=== PATIENT | female | born 1985 | race Caucasian/White ===

== ENCOUNTER 2016-11-02 09:32 | Observation (INO) | payer OTHER ==
[2016-11-02] MEDS ORDERED: BABY ASPIRIN 81 MG CHEW PO ONE (09:50)
[2016-11-02] MEDS ORDERED: Sodium Chloride 0.9% 1000 ML 1,000 ML IV SCH (10:00)
[2016-11-02] MEDS ORDERED: Zofran 4 MG/2 ML VIAL ONE (10:02)
[2016-11-02] MEDS ORDERED: BABY ASPIRIN 81 MG CHEW ONE (10:03)
[2016-11-02] MEDS ORDERED: Sodium Chloride 0.9% 1000 ML 1,000 ML ONE (10:03)
[2016-11-02] MEDS ORDERED: Zofran 4 MG/2 ML VIAL IV ONE ×2 (10:06→12:53)
[2016-11-02 10:10] LABS: BASOPHIL % 0.4 % (0.0-0.4); Eosinophil % 3.2 % (0.00-5.0); Granulocytes % 44.9 % (36.0-66.0); Mean Cell Volume 87.4 fl (78-100); Mean Corpuscular Hemoglobin 30.2 pg (26-32); Mean Platelet Volume 10.3 fl (6-9.5); Monocytes % 6.5 % (0.0-12.0); Platelet Count 213 K/mm3 (150-450); Red Blood Count 4.61 M/mm3 (4.1-5.4); White Blood Count 6.9 K/mm3 (4.0-10.5)
[2016-11-02] MEDS ORDERED: Sodium Chloride 0.9% 1000 ML 1,000 ML IV STA (10:13)
[2016-11-02] MEDS ORDERED: Nitrostat 0.4 MG (ED) SL ONE ×2 (10:13→10:25)
--- NOTE | 2016-11-02 10:13 | ERPHSYRPT ---
- History of Present Illness Time Seen by Provider: 11/02/16 09:50 Historian: patient Exam Limitations: clinical condition Patient Subjective Stated Complaint: PT REPORTS CHEST PAIN RADIATING TO BACK BEGINNING MONDAY-WORSENS WITH DEEP BREATHING OR COUGHING-PT REPORTS INTERMITTANT NONPRODUCTIVE COUGH-UNSURE OF FEVER Triage Nursing Assessment: PT PINK WARM ET [id number] EASY ET NONLABORED- BREATH SOUNDS EQUAL ET CLEAR BILATERALLY-NO COUGH NOTED DURING TRIAGE Physician History: PATIENT WITH HISTORY OF HYPERTENSION, MULTIPLE TRANSIENT ISCHEMIC ATTACKS, COMPLAINS OF ELEVATED BLOOD PRESSURE ASSOCIATED WITH ANTERIOR CHEST PAIN PRESSURE TIGHTNESS FOR 3 DAYS. STATES PAIN RADIATES TO BACK, ASSOCIATED WITH DYSPNEA, DENIES COUGH OR FEVER. HAS BEEN NONCOMPLIANT WITH BLOOD PRESSURE MEDICATION FOR MORE THAN 6 MONTHS. HAS EMESIS, NAUSEA WITH UPPER ABDOMINAL PAINS UPON ARRIVAL. Timing/Duration: day(s) Activities at Onset: none Quality: pressure, tightness Location: substernal Chest Pain Radiation: back Severity of Pain-Max: moderate Severity of Pain-Current: moderate Modifying Factors: Improves With: breathing Associated Symptoms: nausea, vomiting Prior Chest Pain/Cardiac Workup: no prior chest pain Nitro Today/Relief: 0.4 mg x 2, provided by ED, mild relief Aspirin Treatment Today: no aspirin today (DUE TO EMESIS) Allergies/Adverse Reactions: codeine Allergy (Severe, Verified 11/02/16 09:42) Hives Home Medications: No Home Meds 1 [facility] UD 11/02/16 [History] Hx Tetanus, Diphtheria Vaccination/Date Given: No Hx Influenza Vaccination/Date Given: No Hx Pneumococcal Vaccination/Date Given: No Immunizations Up to Date: Yes - Review of Systems Constitutional: No Fever, No Chills Eyes: No Symptoms Ears, Nose, & Throat: No Symptoms Respiratory: No Cough, No Dyspnea Cardiac: Chest Pain, No Edema, No Syncope Abdominal/Gastrointestinal: Abdominal Pain, Nausea, Vomiting, No Diarrhea Genitourinary Symptoms: No Symptoms, No Dysuria Musculoskeletal: No Symptoms, No Back Pain, No Neck Pain Skin: No Symptoms, No Rash Neurological: No Symptoms, No Dizziness, No Focal Weakness, No Sensory Changes Psychological: No Symptoms Endocrine: No Symptoms All Other Systems: Reviewed and Negative - Past Medical History Pertinent Past Medical History: Yes Neurological History: TIA, Other ENT History: No Pertinent History Cardiac History: Hypertension Respiratory History: No Pertinent History Endocrine Medical History: No Pertinent History Musculoskeletal History: No Pertinent History GI Medical History: No Pertinent History History: No Pertinent History Psycho-Social History: No Pertinent History Female Reproductive Disorders: No Pertinent History Other Medical History: GALLSTONES - Past Surgical History Past Surgical History: Yes Neuro Surgical History: No Pertinent History Cardiac: No Pertinent History Respiratory: No Pertinent History Gastrointestinal: Appendectomy, Cholecystectomy Genitourinary: No Pertinent History Musculoskeletal: No Pertinent History Female Surgical History: Section, Tubal Ligation Other Surgical History: After first , patient described that she had 27 "mini" strokes and preeclampsia. TONSILS ET ADNOIDS - Social History Smoking Status: Never smoker Exposure to second hand smoke: Yes Drug Use: none Patient Lives Alone: No Significant Family History: no pertinent family hx - Female History Hx Last Menstrual Period: OCTOBER 08 2016 Hx Now: No - Nursing Vital Signs Nursing Vital Signs: Initial Vital Signs Temperature 98.0 F Temperature Source Oral Pulse Rate [] 90 Pulse Rate 81 Respiratory Rate 18 Blood Pressure [] 111/60 Pain Intensity 3 - Physical Exam General Appearance: no apparent distress, alert Eye Exam: PERRL/EOMI, eyes nml inspection Ears, Nose, Throat Exam: normal ENT inspection, moist mucous membranes Neck Exam: normal inspection, non-tender, supple, full range of motion Respiratory Exam: normal breath sounds, lungs clear, No respiratory distress Cardiovascular Exam: regular rate/rhythm, normal heart sounds Gastrointestinal/Abdomen Exam: soft, normal bowel sounds, tenderness ( EPIGASTRIC ), No mass Back Exam: normal inspection, No CVA tenderness, No vertebral tenderness Extremity Exam: normal inspection, normal range of motion Neurologic Exam: alert, oriented x 3, cooperative, normal mood/affect, sensation nml, No motor deficits Skin Exam: normal color, warm, dry SpO2 Interpretation: normal SpO2: 98 Oxygen Delivery: Room Air - Course EKG Interpreted by Me: RATE, Sinus Rhythm, NORMAL AXIS, Other (INFERIOR T-WAVE CHANGES LEADS 111,AVF AND LEAD V3) - Radiology Exams Chest X-ray Interpretation: Discussed w/ radiologist (SLIGHTLY, HYPOINFLATED CHEST REVEALING NO INFILTRATES, HEART FAILURE) - CT Exams Chest CT Interpretation: Discussed w/radiologist (NO FINDINGS OF ACUTE PULMONARY EMBOLISM) Ordered Tests: Active Orders 24 hr Category Date Time Status Bedrest ROUTINE Activity 11/02/16 12:25 Active Bedrest with BRP/BSC ROUTINE Activity 11/02/16 12:25 Active Admission/Status Order ROUTINE Care 11/02/16 12:25 Active [employer] STAT Care 11/02/16 09:50 Active Code Status Order ROUTINE Care 11/02/16 12:25 Active EKG-ER Only STAT Care 11/02/16 09:50 Active IV Care Q6H Care 11/02/16 12:25 Active Implement Chest Pain Pathway ROUTINE Care 11/02/16 12:25 Active Oxygen-ED Only NASAL CANNULA 2 lpm Care 11/02/16 09:50 Active Siddharth Portillo, Apply ROUTINE Care 11/02/16 12:25 Active Telemetry ROUTINE Care 11/02/16 12:25 Active Vital Signs Q4H Care 11/02/16 12:25 Active Weight,Daily 0600 Care 11/02/16 12:25 Active Regular Diet Diet 11/02/16 Dinner Active CHEST 1 VIEW (PORTABLE) Stat Exams 11/02/16 09:53 Completed CHEST WITH CONTRAST [CT] Stat Exams 11/02/16 10:48 Completed BLOOD CULTURE Stat Lab 11/02/16 10:05 Received CBC W DIFF Stat Lab 11/02/16 09:50 Completed CMP Stat Lab 11/02/16 09:50 Completed D-DIMER QUANTITATION Stat Lab 11/02/16 09:50 Completed LIPID PROFILE AM.LAB Lab 11/03/16 04:00 Ordered MAGNESIUM Stat Lab 11/02/16 09:50 Completed PROTIME WITH INR Stat Lab 11/02/16 09:50 Completed TROPONIN Q3H Lab 11/02/16 09:50 Completed TROPONIN Q3H Lab 11/02/16 13:00 Ordered TROPONIN Q3H Lab 11/02/16 16:00 Ordered TROPONIN Q3H Lab 11/02/16 19:00 Ordered TROPONIN Q3H Lab 11/02/16 22:00 Ordered EKG Q8HX2,QAMX3,PRN RT 11/02/16 12:25 Active Pulse Oximetry Q4H RT 11/02/16 12:25 Active Transfer Order Routine Transfer 11/02/16 12:24 Ordered Medication Summary Generic Name Dose Route Start Last Admin Trade Name Freq PRN Reason Stop Dose Admin Acetaminophen 650 mg 11/02/16 12:25 Tylenol 325 Mg PO 12/02/16 12:24 Q4H PRN PRN PAIN AND/OR FEVER Al Hydrox/Mg Hydrox/Simethicone 30 ml 07/12/17 12:25 Maalox Es 30 Ml Unit Dose PO 12/02/16 12:24 Q4H PRN PRN INDIGESTION Aspirin 325 mg 11/03/16 10:00 Ecotrin 325 Mg PO 12/03/16 09:59 DAILY [facility] Famotidine 20 mg 11/02/16 22:00 Pepcid 20 Mg Vial IV 12/02/16 21:59 Q12HT [facility] Sodium Chloride 1,000 mls @ 100 mls/hr 11/02/16 10:00 11/02/16 10:13 Sodium Chloride 0.9% 1000 Ml IV 12/02/16 09:59 500 mls/hr .Q10H [facility] Infusion Sodium Chloride 500 mls @ 75 mls/hr 11/02/16 12:30 Sodium Chloride 0.9% 500 Ml IV 12/02/16 12:29 .Q6H40M [facility] Lisinopril 10 mg 11/03/16 10:00 Zestril 10 Mg PO 12/03/16 09:59 DAILY [facility] Magnesium Hydroxide 30 - 60 ml 11/02/16 12:25 Milk Of Magnesia 30 Ml PO 12/02/16 12:24 QDP PRN CONSTIPATION Morphine Sulfate 2 mg 11/02/16 12:25 Morphine Sulfate 2 Mg Inj IV 11/07/16 12:24 .Q15MIN PRN PRN CHEST PAIN Nitroglycerin 0.4 mg 11/02/16 12:25 Nitrostat 0.4 Mg Tablet SL 12/02/16 12:24 .Q5MIN PRN CHEST PAIN Nitroglycerin 1 gm 11/02/16 14:00 Nitro-Bid 2% Ud Packets TOP 12/02/16 13:59 Q8HT [facility] Ondansetron HCl 4 mg 11/02/16 12:25 Zofran 4 Mg/2 Ml Vial IV 12/02/16 12:24 Q4H PRN PRN NAUSEA/VOMITING Senna/Docusate Sodium 2 udtab 11/02/16 12:25 Senokot-S Tablet PO 12/02/16 12:24 BID PRN PRN CONSTIPATION Discontinued Medications Generic Name Dose Route Start Last Admin Trade Name Freq PRN Reason Stop Dose Admin Aspirin 324 mg 11/02/16 09:50 11/02/16 10:11 Baby Aspirin 81 Mg Chew PO 11/02/16 09:51 Not Given STAT ONE Aspirin Confirm 11/02/16 10:03 Baby Aspirin 81 Mg Chew Administered 11/02/16 10:04 Dose 324 mg .ROUTE .STK-MED ONE Sodium Chloride 1,000 mls @ 500 mls/hr 11/02/16 10:13 11/02/16 10:23 Sodium Chloride 0.9% 1000 Ml IV 11/02/16 12:12 500 mls/hr .Q2H STA Administration Nitroglycerin 0.4 mg 11/02/16 10:13 11/02/16 10:18 Nitrostat 0.4 Mg (Ed) SL 11/02/16 10:14 0.4 mg STAT ONE Administration Nitroglycerin Confirm 11/02/16 10:25 Nitrostat 0.4 Mg (Ed) Administered 11/02/16 10:26 Dose 0.4 mg SL .STK-MED ONE Nitroglycerin 1 gm 11/02/16 11:02 11/02/16 11:24 Nitro-Bid 2% Ud Packets TOP 11/02/16 11:03 1 gm STAT ONE Administration Nitroglycerin Confirm 11/02/16 11:21 Nitro-Bid 2% Ud Packets Administered 11/02/16 11:22 Dose 1 gm .ROUTE .STK-MED ONE Ondansetron HCl Confirm 11/02/16 10:02 Zofran 4 Mg/2 Ml Vial Administered 11/02/16 10:03 Dose 4 mg .ROUTE .STK-MED ONE Ondansetron HCl 4 mg 11/02/16 10:06 11/02/16 10:07 Zofran 4 Mg/2 Ml Vial IV 11/02/16 10:07 4 mg STAT ONE Administration Pantoprazole Sodium 40 mg 11/02/16 10:14 11/02/16 10:23 Protonix 40 Mg Iv IV 11/02/16 10:15 40 mg STAT ONE Administration Pantoprazole Sodium Confirm 11/02/16 10:25 Protonix 40 Mg Iv Administered 11/02/16 10:26 Dose 40 mg IV .STK-MED ONE Lab/Rad Data: Laboratory Result Diagrams 11/02/16 09:50 11/02/16 09:50 Laboratory Results 11/02/16 11/02/16 11/02/16 Range/Units 09:50 09:50 09:50 WBC (4.0-10.5) K/mm3 RBC (4.1-5.4) M/mm3 Hgb (12.0-16.0) gm/dl Hct (35-47) % MCV (78-100) fl MCH (26-32) pg MCHC (32-36) g/dl RDW (11.5-14.0) % Plt Count (150-450) K/mm3 MPV (6-9.5) fl Gran % (36.0-66.0) % Lymphocytes % (24.0-44.0) % Monocytes % (0.0-12.0) % Eosinophils % (0.00-5.0) % Basophils % (0.0-0.4) % Basophils # (0-0.4) INR 0.94 (0.8-3.0) D-Dimer 658 H* (0-500) ng/mL Sodium 139 (136-145) mEq/L Potassium 3.8 (3.5-5.1) mEq/L Chloride 104 (98-107) mEq/L Carbon Dioxide 22.0 (21-32) mEq/L Anion Gap 16.5 H (5-15) MEQ/L BUN 6 L (9-20) mg/dL Creatinine 0.78 (0.55-1.30) mg/dl Estimated GFR > 60 ML/MIN Glucose 107 (70-110) MG/DL Calcium 9.3 (8.5-10.1) mg/dL Magnesium 2.0 (1.8-2.4) mg/dL Total Bilirubin 0.40 (0.2-1.0) mg/dL AST 27 (15-37) U/L ALT 29 (12-78) U/L Alkaline Phosphatase 61 (46-116) U/L Troponin I < 0.017 (0.000-0.056) ng/ml Serum Total Protein 7.9 (6.4-8.2) gm/dL Albumin 3.8 (3.4-5.0) g/dL 11/02/16 Range/Units 09:50 WBC 6.9 (4.0-10.5) K/mm3 RBC 4.61 (4.1-5.4) M/mm3 Hgb 13.9 (12.0-16.0) gm/dl Hct 40.3 (35-47) % MCV 87.4 (78-100) fl MCH 30.2 (26-32) pg MCHC 34.5 (32-36) g/dl RDW 13.0 (11.5-14.0) % Plt Count 213 (150-450) K/mm3 MPV 10.3 H (6-9.5) fl Gran % 44.9 (36.0-66.0) % Lymphocytes % 45.0 H (24.0-44.0) % Monocytes % 6.5 (0.0-12.0) % Eosinophils % 3.2 (0.00-5.0) % Basophils % 0.4 (0.0-0.4) % Basophils # 0.03 (0-0.4) INR (0.8-3.0) D-Dimer (0-500) ng/mL Sodium (136-145) mEq/L Potassium (3.5-5.1) mEq/L Chloride (98-107) mEq/L Carbon Dioxide (21-32) mEq/L Anion Gap (5-15) MEQ/L BUN (9-20) mg/dL Creatinine (0.55-1.30) mg/dl Estimated GFR ML/MIN Glucose (70-110) MG/DL Calcium (8.5-10.1) mg/dL Magnesium (1.8-2.4) mg/dL Total Bilirubin (0.2-1.0) mg/dL AST (15-37) U/L ALT (12-78) U/L Alkaline Phosphatase (46-116) U/L Troponin I (0.000-0.056) ng/ml Serum Total Protein (6.4-8.2) gm/dL Albumin (3.4-5.0) g/dL - Progress Progress Note: 11/02/16 10:26 PATIENT GIVEN IV NORMAL SALINE 500ML/HR, ZOFRAN 4MG IV, UNABLE TO TOLERATE ASPIRIN DUE TO EMESIS, FOLLOWED BY NITROGLYCERIN 0.4GM SL Discussed with Dr.: Bullock (DISCUSSED WITH DR BULLOCK AT 1215 FOR ADMISSION) - Departure Time of Disposition: 12:20 Departure Disposition: Observation Clinical Impression: CHEST PAIN, HYPERTENSION Condition: Stable Critical Care Time: No Referrals: SHAUN BULLOCK [Primary Care Provider] -
[2016-11-02] MEDS ORDERED: PROTONIX 40 MG IV IV ONE ×2 (10:14→10:25)
--- NOTE | 2016-11-02 10:24 | XRAY ---
Exam: AP upright portable chest film from 1010 hrs. on 11/02/2016. Comparison: Two-view chest from 05/03/2013. Indication: Cough, chest pain. Findings: Lung volumes are slightly less than average. The transverse heart size appears within normal limits with mild left ventricular prominence. No vascular congestion is seen. The remainder of the martine and mediastinal structures appears unremarkable. No air space infiltrates, pneumothorax, or pleural fluid is seen. No acute osseous process is seen. There is slight convexity of the upper mid thoracic spine toward the right representing no change. Surgical clips consistent with prior cholecystectomy are seen within the right upper quadrant. Impression: 1. Slightly hypoinflated chest revealing no infiltrates, heart failure, or other acute cardiac or process.
[2016-11-02 10:28] LABS: INR 0.94 (0.8-3.0); PROTIME 10.6 SECONDS (9.95-12.35)
[2016-11-02 10:36] LABS: ALBUMIN 3.8 g/dL (3.4-5.0); ALKALINE PHOSPHATASE 61 U/L (46-116); ANION GAP 16.5 MEQ/L (5-15); BLOOD UREA NITROGEN 6 mg/dL (9-20); CHLORIDE 104 mEq/L (98-107); Glucose 107 MG/DL (70-110); Potassium 3.8 mEq/L (3.5-5.1); SGOT/AST 27 U/L (15-37); SGPT/ALT 29 U/L (12-78); SODIUM 139 mEq/L (136-145); Total Protein 7.9 gm/dL (6.4-8.2)
[2016-11-02] MEDS ORDERED: NITRO-BID 2% UD PACKETS TOP ONE (11:02)
[2016-11-02] MEDS ORDERED: NITRO-BID 2% UD PACKETS ONE (11:21)
--- NOTE | 2016-11-02 11:53 | XRAY ---
Exam: CTA of the chest with IV contrast per PE protocol from 2016. CTDI: 18.15 Comparison: No prior CT study of the chest. Indication: Chest pain, high blood pressure, elevated d-dimer. Technique: Post-IV contrast axial images were obtained through the chest using the PE protocol utilizing 80 cc of Isovue 370 contrast material. Reconstructed coronal and sagittal images were created and reviewed. Findings: The central pulmonary arteries enhance well and reveal no filling defects to suggest clot/emboli. I see no evidence of thoracic aortic aneurysm or dissection. A small granulomatous calcification is seen within the right infrahilar projection. No abnormal perihilar or mediastinal lymphadenopathy is seen. The visualized thyroid gland appears grossly unremarkable. The lung wright reveal a tiny calcified granuloma within the right lower lobe posteriorly. No infiltrates, pneumothorax, or pleural fluid is seen. No suspicious soft tissue lung nodules are seen. There appears to be marked diffuse hepatic steatosis. The visualized adrenal glands appear unremarkable. No other abnormality is seen within the visualized upper abdomen. A small splenule is seen within the left upper quadrant. The bones reveal no acute fracture or aggressive bone lesion. Minimal anterior thoracic vertebral endplate spurring is seen on the sagittal images. Impression: 1. No findings of acute pulmonary embolism are seen. Nor do I detect evidence of a thoracic aortic dissection. 2. Minimal old healed granulomatous disease on the right. No acute cardiopulmonary process is seen. 3. Marked diffuse hepatic steatosis.
[2016-11-02] MEDS ORDERED: MAALOX ES 30 ML UNIT DOSE PO PRN (12:25)
[2016-11-02] MEDS ORDERED: MILK OF MAGNESIA 30 ML PO PRN (12:25)
[2016-11-02] MEDS ORDERED: Nitrostat 0.4 MG Tablet SL PRN (12:25)
[2016-11-02] MEDS ORDERED: Senokot-S Tablet PO PRN (12:25)
[2016-11-02] MEDS ORDERED: Zofran 4 MG/2 ML VIAL IV PRN (12:25)
[2016-11-02] MEDS ORDERED: MORPHINE SULFATE 2 MG INJ IV PRN (12:25)
[2016-11-02] MEDS: NITRO-BID 2% UD PACKETS TOP SCH ×2 (15:27→22:23)
[2016-11-02] MEDS: Sodium Chloride 0.9% 500 ML 500 ML IV SCH ×2 (15:31→22:24)
[2016-11-02] MEDS: Phenergan 25 MG INJ IV PRN (17:47)
--- NOTE | 2016-11-02 19:13 | PCM.NOTE ---
Date and Time: 11/02/161907 Subjective Assessment: Pt seen by me in office today, see note on chart. She c/o 4d of chest pain and was sent to ER. D-dimer was elevated but CTA chest neg for PE. Troponin neg. Admitted for CP r/o [place]. She started vomiting after admission; notes she started feeling nauseated after being seen inthe office. Currently sleepy and less nauseated with IV zofran and phenergan. CP is 3/10 with nitro. - Review of Systems Respiratory: Short Of Breath (3 pillow orthopnea at home x 3d) Cardiac: Chest Pain, Orthopnea Musculoskeletal: Other (L arm pain 4d ago which resolved) All Other Systems: Reviewed and Negative Objective Exam General Appearance: mild distress Neurologic Exam: alert, oriented x 3, cooperative Skin Exam: normal color, warm, dry Neck Exam: normal inspection, non-tender, supple Respiratory Exam: normal breath sounds, lungs clear, No crackles/rales, No rhonchi, No wheezing Cardiovascular Exam: regular rate/rhythm, normal heart sounds, No murmur Gastrointestinal/Abdomen Exam: soft, normal bowel sounds, tenderness (mild periumbilical), No guarding, No rebound Extremity Exam: normal inspection, No pedal edema, No swelling Back Exam: normal inspection, No CVA tenderness OBJECTIVE DATA Vital Signs: Vital Signs - 24 hr Temp Pulse Pulse Resp BP Pulse Ox 11/02/16 16:00 98.1 F 95 H 20 106/62 95 11/02/16 13:27 97.8 F 98 H 16 129/74 96 11/02/16 12:38 98 11/02/16 11:59 81 18 111/60 98 11/02/16 11:24 92 H 20 137/83 100 11/02/16 10:28 89 20 144/89 98 11/02/16 10:16 89 18 144/87 98 11/02/16 09:35 98.0 F 90 90 20 168/92 98 Oxygen-Last 24 hours O2 Percentage 2 Liters = 28% O2 Percentage 2 Liters = 28% Pain Assessment - Last Documented Pain Intensity 3 Pain Scale Used 0-10 Pain Scale Intake and Output: Intake & Output 10/31/16 11/01/16 11/02/16 11/03/16 11:59 11:59 11:59 11:59 Intake Total 136 Output Total 250 Balance -114 Weight 82.185 kg Lab Results: Lab Results-Last 24 Hours 11/02/16 11/02/16 Range/Units 13:45 16:08 Troponin I < 0.017 < 0.017 (0.000-0.056) ng/ml Assessment/Plan (1) Chest pain Current Visit: Yes Status: Acute Qualifiers: Chest pain type: other chest pain Qualified Code(s): R07.89 - Other chest pain; R07.8 - Other chest pain Assessment & Plan: will keep her overnight to r/o [place]. Would recommend op stress test. Code(s): R07.9 - CHEST PAIN, UNSPECIFIED (2) Hypertension Current Visit: Yes Status: Acute Qualifiers: Hypertension type: essential hypertension Qualified Code(s): I10 - Essential (primary) hypertension Assessment & Plan: Just today I called in lisinopril 10mg for her; she had reported several readings in the 150s systolic over the past few months. Code(s): I10 - ESSENTIAL (PRIMARY) HYPERTENSION (3) Abnormal Pap smear of cervix Current Visit: Yes Status: Acute Qualifiers: Abnormal Pap type: unspecified Qualified Code(s): R87.619 - Unspecified abnormal cytological findings in specimens from cervix uteri Assessment & Plan: Recently had U/S and sounds like colposcopy with bx with Dr. Babin of [facility] - will have info put on chart. Code(s): R87.619 - UNSP ABNORMAL CYTOLOG FINDINGS IN SPECMN FROM CERVIX UTERI
[2016-11-02] MEDS: Pepcid 20 MG VIAL IV SCH (22:24)
[2016-11-03] MEDS: Phenergan 25 MG INJ IV PRN ×2 (00:38→08:09)
[2016-11-03] MEDS: Sodium Chloride 0.9% 500 ML 500 ML IV SCH (05:54)
[2016-11-03] MEDS: NITRO-BID 2% UD PACKETS TOP SCH ×3 (05:57→23:23)
[2016-11-03] MEDS ORDERED: MEDICATION INTERVENTION MC PRN (07:57)
--- NOTE | 2016-11-03 09:35 | PCM.NOTE ---
Date and Time: 11/03/16928 Subjective Assessment: She reports she has had some nausea and has been unable to keep down water. Her pain is in her sternum and then down to her umbilicus and also a little in the left lower quadrant. She reports abnormal periods and having had her tubes tied and also on control. She reports looking at her report from the procedure she had done with her management psychologist and says it said she had cervicitis. She is not having any pelvic pain. She has also had a headache. She also had diarrhea that started yesterday. No one at home has had vomiting or diarrhea. - Review of Systems Constitutional: No Symptoms Eyes: No Symptoms Ears, Nose, & Throat: No Symptoms Respiratory: No Symptoms Cardiac: Chest Pain Abdominal/Gastrointestinal: Abdominal Pain, Nausea, Vomiting, Diarrhea Genitourinary Symptoms: No Symptoms Musculoskeletal: No Symptoms Skin: No Symptoms Objective Exam General Appearance: no apparent distress, other (family member at bedside) Neurologic Exam: alert, cooperative, normal mood/affect Skin Exam: normal color, warm, dry, No rash Respiratory Exam: normal breath sounds, lungs clear, airway intact, No respiratory distress, No diminished breath sounds, No accessory muscle use, No crackles/rales, No rhonchi, No wheezing Cardiovascular Exam: regular rate/rhythm, normal heart sounds, No murmur, No friction rub, No gallop Gastrointestinal/Abdomen Exam: soft, other (mild epigastric and left lower quadrant tenderness; hypoactive bowel sounds), No distention, No mass, No guarding Extremity Exam: normal inspection, other (no c/c/e) OBJECTIVE DATA Vital Signs: Vital Signs - 24 hr Temp Pulse Pulse Resp BP Pulse Ox 11/03/16 08:00 98.4 F 89 18 116/62 98 11/03/16 04:20 98.2 F 70 16 123/66 98 11/03/16 00:00 97.9 F 75 16 112/58 97 11/02/16 20:00 98.3 F 82 18 117/67 98 11/02/16 16:00 98.1 F 95 H 20 106/62 95 11/02/16 13:27 97.8 F 98 H 16 129/74 96 11/02/16 12:38 98 11/02/16 11:59 81 18 111/60 98 11/02/16 11:24 92 H 20 137/83 100 11/02/16 10:28 89 20 144/89 98 11/02/16 10:16 89 18 144/87 98 11/02/16 09:35 98.0 F 90 90 20 168/92 98 Oxygen-Last 24 hours O2 Percentage 2 Liters = 28% O2 Percentage 2 Liters = 28% Pain Assessment - Last Documented Pain Intensity 6 Pain Scale Used 0-10 Pain Scale Intake and Output: Intake & Output 11/01/16 11/02/16 11/03/16 11/04/16 06:59 06:59 06:59 06:59 Intake Total 1315 0 Output Total 800 Balance 515 0 Weight 83.007 kg Lab Results: Lab Results-Last 24 Hours 11/02/16 11/02/16 11/02/16 Range/Units 13:45 16:08 19:40 Troponin I < 0.017 < 0.017 < 0.017 (0.000-0.056) ng/ml Triglycerides (30-200) mg/dL Cholesterol (100-200) mg/dL LDL Cholesterol (5-99) mg/dL HDL Cholesterol (35-60) mg/dL Heart Disease Risk Ratio 11/02/16 11/03/16 Range/Units 22:15 04:00 Troponin I < 0.017 (0.000-0.056) ng/ml Triglycerides 86 (30-200) mg/dL Cholesterol 184 (100-200) mg/dL LDL Cholesterol 135 H (5-99) mg/dL HDL Cholesterol 35 (35-60) mg/dL Heart Disease Risk Ratio 5.3 Assessment/Plan (1) Chest pain Current Visit: Yes Status: Acute Qualifiers: Chest pain type: other chest pain Qualified Code(s): R07.89 - Other chest pain; R07.8 - Other chest pain Assessment & Plan: Ruled out for acute myocardial infarction. Will check Echo. Plan for patient to see Dr. Nj as outpatient. Continue telemetry. Continue aspirin. CT of chest was negative for PE. Code(s): R07.9 - CHEST PAIN, UNSPECIFIED (2) Abdominal pain Current Visit: Yes Status: Acute Assessment & Plan: Check amylase and lipase and continue morphine as needed for pain. She reports she has had her gallbladder and appendix taken out. Continue famotidine. Code(s): R10.9 - UNSPECIFIED ABDOMINAL PAIN (3) Hepatic steatosis Current Visit: Yes Status: Acute Assessment & Plan: Will grief counsellor patient on low fat diet, weight loss and exercise. Code(s): K76.0 - FATTY (CHANGE OF) LIVER, NOT ELSEWHERE CLASSIFIED (4) Hypertension Current Visit: Yes Status: Acute Qualifiers: Hypertension type: essential hypertension Qualified Code(s): I10 - Essential (primary) hypertension Assessment & Plan: Continue lisinopril. Her blood pressure is better controlled. If her UPT is positive, will of course stop DAVID inhibitor but seems unlikely given that she has had a tubal ligation and she is on oral control. Code(s): I10 - ESSENTIAL (PRIMARY) HYPERTENSION (5) Abnormal Pap smear of cervix Current Visit: Yes Status: Acute Qualifiers: Abnormal Pap type: unspecified Qualified Code(s): R87.619 - Unspecified abnormal cytological findings in specimens from cervix uteri Assessment & Plan: Will try to obtain records from her management psychologist. Code(s): R87.619 - UNSP ABNORMAL CYTOLOG FINDINGS IN SPECMN FROM CERVIX UTERI
[2016-11-03] MEDS ORDERED: NORGESTIMATE ETHINYL ESTRADIOL PO SCH (10:00)
[2016-11-03] MEDS: Ecotrin 325 MG PO SCH (10:10)
[2016-11-03] MEDS: Zestril 10 MG PO SCH (10:10)
[2016-11-03] MEDS: Pepcid 20 MG VIAL IV SCH ×2 (10:10→20:12)
[2016-11-03] MEDS: Dextrose 5% -0.45 NaCl 1000 ML 1,000 ML IV SCH ×2 (10:10→22:30)
[2016-11-03] MEDS: TYLENOL 325 MG PO PRN (20:12)
[2016-11-04] MEDS: TYLENOL 325 MG PO PRN (06:44)
[2016-11-04] MEDS: NITRO-BID 2% UD PACKETS TOP SCH (06:57)
[2016-11-04 08:33] VITALS: BP 117/65; PULSE 74; O2SAT 96
--- NOTE | 2016-11-04 08:40 | PCM.DCORD ---
- Discharge Discharge Date: 11/04/16 Disposition: Home, Self-Care Condition: Stable Prescriptions: New Aspirin EC 325 mg [Ecotrin 325 MG] 325 mg PO DAILY #30 tablet.ec Continue Norgestimate-Ethinyl Estradiol [[place] 28 Tablet] 1 each PO DAILY Lisinopril 10 mg [Zestril 10 MG] 10 mg PO DAILY #30 tablet Follow up with: SHAUN CABALLERO [Primary Care Provider] - ROBBI TINAJERO [CONSULTING PHYSICIAN] - 1 Week
[2016-11-04] MEDS: Ecotrin 325 MG PO SCH (09:07)
[2016-11-04] MEDS: Zestril 10 MG PO SCH (09:07)
[2016-11-04] MEDS: Pepcid 20 MG VIAL IV SCH (09:10)
--- NOTE | 2016-11-04 09:53 | DS ---
DISCHARGE DIAGNOSES: 1) CHEST PAIN. 2) HYPERTENSION. 3) ABDOMINAL PAIN. 4) HISTORY OF ABNORMAL PAP SMEAR OF THE CERVIX. DISCHARGE PHYSICAL EXAMINATION: VITALS: Temperature current 98.6F, temperature max 98.8F, heart rate 70 to 83, respiratory rate 16 to 18, blood pressure 117 to 136 over 65 to 89. Oxygen saturation 96 to 98%. GENERAL: The patient is a pleasant talkative lady sitting up in bed in no acute distress. CVS: She has a regular rate and rhythm. No murmurs, gallops or rubs are appreciated. CHEST: Clear to auscultation bilaterally. No crackles or wheezes. ABDOMEN: Soft, nontender, nondistended with normal bowel sounds. EXTREMITIES: No clubbing, cyanosis or edema. SKIN: Warm, dry and intact. HOSPITAL COURSE: 1) CHEST PAIN: She was ruled out for an acute myocardial infarction. Her EKG's have not had any ST-segment elevation or depression. No changes are noted. She is agreeable to seeing Dr. Bebeto Nj, [employer], as an outpatient and having an outpatient stress test done. She has been chest pain free. She reports they have been giving her the Nitro paste but had to stop doing this because she had a headache. Will continue with an aspirin at home. Her blood pressure is much better controlled with lisinopril. 2) HYPERTENSION: Will continue lisinopril at home. She has history of tubal ligation and is also on oral contraceptive. The patient was counseled that she would decide to have tubal ligation reversed or thought she was that she would need to contact Dr. Bullock right away to have her blood pressure medicine changed as the DAVID inhibitors can cause defects. 3) ABDOMINAL PAIN: She has been able to eat and drink well. She denies any further nausea or vomiting since yesterday later in afternoon. She denies any diarrhea. She desires to go home. CT of her chest did show some hepatic steatosis so I will talk to her about weight loss and a low fat diet. 4) HISTORY OF ABNORMAL PAP SMEAR: I had written an order to request records from her tree inspector but I do not see these on her chart so she will need to follow up with her tree inspector as an outpatient. DISCHARGE MEDICATIONS: Lisinopril 10 mg p.o. daily, aspirin 325 mg p.o. daily. She will continue her oral control. FOLLOW UP: Follow up with Dr. Bullock her primary care doctor in one week and Dr. Nj as well as have an outpatient stress test.
--- NOTE | 2016-11-04 14:40 | ECHO ---
DATE OF PROCEDURE: 11/03/2016 CLINICAL INFORMATION: Chest pain. The M-mode 2D, and Doppler echocardiogram including color flow Doppler shows normal contractility of the left ventricle. The ejection fraction is calculated to be 60%. The left ventricular cavity is normal in size with a dimension of 3.3 cm. The septal wall thickness is increased at 1.4 cm. The left ventricular posterior wall thickness is increased at 1.7 cm. The left ventricular apex is not well visualized. The right ventricle is grossly normal. The left atrium is normal in size at 3.3 cm. The right atrium is normal in size. The intra-atrial septum is intact. The aortic valve opens well and is trileaflet. The mitral valve is grossly normal. There is mild tricuspid regurgitation without pulmonary hypertension. The pulmonic valve is not well seen. There is mild pulmonic regurgitation present. The aortic root is normal at 3.0 cm. There is no pericardial effusion present. IMPRESSION: 1) MILD TRICUSPID REGURGITATION WITHOUT PULMONARY HYPERTENSION. 2) MILD PULMONIC REGURGITATION. 3) MILD TO MODERATE ASYMMETRIC LEFT VENTRICULAR HYPERTROPHY. 4) THERE IS NO EVIDENCE OF MITRAL VALVE PROLAPSE.
== END 2016-11-04 10:30 | disposition home or self-care (01) ==
LOC: ED 09:32 → MED SURG 13:04
PROVIDERS: ADMIT Family Medicine; ATTEND Family Medicine
DX: R07.89 Other chest pain (principal); I10 Essential (primary) hypertension; R10.9 Unspecified abdominal pain; R87.619 Unspecified abnormal cytological findings in specimens from cervix uteri; K76.0 Fatty (change of) liver, not elsewhere classified
CPT/HCPCS: 36000; 36415; 71010; 71260; 80053; 80061; 82150; 83721; 83735; 84484; 84703; 85025; 85379; 85610; 87040; 93005; 93041; 93268; 93306; 96360; 96361; 96374; 96375; 96376; 99285; G0378; J2270; J2405; J2550; A9270-GY

== ENCOUNTER 2017-11-20 10:06 | Emergency (ER) | payer OTHER ==
[2017-11-20] MEDS ORDERED: MOTRIN 600 MG PO ONE (10:40)
--- NOTE | 2017-11-20 10:46 | ERPHSYRPT ---
- History of Present Illness Time Seen by Provider: 11/20/17 10:30 Source: patient Exam Limitations: clinical condition Patient Subjective Stated Complaint: Pt states "I rolled my ankle last night." Triage Nursing Assessment: Pt alert and oriented X 3, skin pwd. PT ambulates with a limp. PT able to bear light weight on her right ankle slight swelling noted, no bruising noted. Pain to palpation as well as weight bearing. Physician History: PATIENT WITH A HISTORY OF HYPERTENSION COMPLAINS OF TWISTING HER RIGHT ANKLE IN THE YARD ASSOCIATED WITH SWELLING AND PAIN OVER THE OUTER ASPECT OF HER RIGHT ANKLE. SHE DENIES DEFORMITY OR BRUISING BUT COMPLAINS OF PAIN UPON WEIGHT BEARING. Method of Injury: twisted Occurred: just prior to arrival Quality: constant Severity of Pain-Max: moderate Severity of Pain-Current: moderate Lower Extremities Pain: ankle: right Modifying Factors: Improves With: movement Associated Symptoms: other (PAIN UPON WEIGHT BEARING) Allergies/Adverse Reactions: codeine Allergy (Severe, Verified 11/02/16 09:42) Hives hydrocodone Allergy (Severe, Verified 11/20/17 10:24) Swelling Home Medications: Carvedilol 3.125 mg PO DAILY 11/20/17 [History] Duloxetine HCl 60 mg PO DAILY 11/20/17 [History] Ergocalciferol (Vitamin D2) [Vitamin D2] 1 cap PO WEEKLY 11/20/17 [History] Gabapentin 300 mg PO TID 11/20/17 [History] Norgestimate-Ethinyl Estradiol [[place]] 1 each PO DAILY 11/20/17 [History] Trazodone HCl 50 mg [Desyrel 50 mg] 50 mg PO HS 11/20/17 [History] Hx Tetanus, Diphtheria Vaccination/Date Given: Yes Hx Influenza Vaccination/Date Given: Yes Hx Pneumococcal Vaccination/Date Given: No Immunizations Up to Date: Yes - Review of Systems Constitutional: No Symptoms Musculoskeletal: Injury, Joint Pain, Joint Swelling Neurological: No Symptoms Psychological: No Symptoms - Past Medical History Pertinent Past Medical History: Yes Neurological History: Seizures, TIA ENT History: No Pertinent History Cardiac History: Hypertension Respiratory History: No Pertinent History Endocrine Medical History: No Pertinent History Musculoskeletal History: Degenerative Disk Disease GI Medical History: No Pertinent History History: No Pertinent History Psycho-Social History: No Pertinent History Female Reproductive Disorders: No Pertinent History Other Medical History: gallbladder removed, appendix removed, fatty liver, mitral valve prolapse, - Past Surgical History Past Surgical History: Yes Neuro Surgical History: No Pertinent History Cardiac: No Pertinent History Respiratory: No Pertinent History Gastrointestinal: Appendectomy, Cholecystectomy Genitourinary: No Pertinent History Musculoskeletal: No Pertinent History Female Surgical History: Section, Tubal Ligation Other Surgical History: After first , patient described that she had 27 "mini" strokes and preeclampsia. TONSILS ET ADNOIDS - Social History Smoking Status: Never smoker Exposure to second hand smoke: Yes Drug Use: none Patient Lives Alone: No Significant Family History: no pertinent family hx - Female History Hx Last Menstrual Period: 10/19/2017 Hx Now: No (tubal) - Nursing Vital Signs Nursing Vital Signs: Initial Vital Signs Temperature 98.4 F 11/20/17 10:19 Pulse Rate 90 11/20/17 10:19 Respiratory Rate 16 11/20/17 10:19 Blood Pressure 166/110 11/20/17 10:19 O2 Sat by Pulse Oximetry 100 11/20/17 10:19 Pain Scale Pain Intensity 8 - Physical Exam General Appearance: alert Ankle Exam: right ankle: normal range of motion (WITH PAIN, MODERATE TENDERNESS , SWELLING LATERAL MALLEOLUS, NO CREPITUS, ECCHYMOSIS, NO JOINT LAXITY UPON VARUS/VALGUS STRESS, RIGHT PEDIS PULSE 2+), soft tissue tenderness, swelling DTR - Lower Extremities Exam: knee (R): 2+, knee (L): 2+, ankle (R): 2+ SpO2 Interpretation: normal SpO2: 100 Oxygen Delivery: Nasal Cannula - Radiology Exams Right Ankle X-ray Interpretation: Interpreted by me, Negative, No Fracture (NO DISLOCATION) Ordered Tests: Active Orders 24 hr Category Date Time Status Crutches STAT Care 11/20/17 10:40 Active Splint STAT Care 11/20/17 11:08 Ordered ANKLE (3 VIEWS) Stat Exams 11/20/17 10:39 Ordered Medication Summary Discontinued Medications Generic Name Dose Route Start Last Admin Trade Name Freq PRN Reason Stop Dose Admin Ibuprofen 600 mg 11/20/17 10:40 11/20/17 11:01 Motrin 600 Mg PO 11/20/17 10:41 600 mg STAT ONE Administration Ibuprofen Confirm 11/20/17 11:00 Motrin 600 Mg Administered 11/20/17 11:01 Dose 600 mg .ROUTE .[facility]-MED ONE - Progress Progress Note: 11/20/17 10:49 ADMINISTERED MOTRIN 600MG ORALLY, PLACEMENT RIGHT VELCRO ANKLE SPLINT, AND CRUTCHES, 11/20/17 10:57 Counseled pt/family regarding: diagnosis, need for follow-up, rad results - Departure Time of Disposition: 11:27 Departure Disposition: Home Clinical Impression: RIGHT ANKLE STRAIN Condition: Stable Critical Care Time: No Referrals: SHAUN CABALLERO [Primary Care Provider] - Additional Instructions: AMBULATE USING CRUTCHES NONWEIGHTBEARING RIGHT LOWER EXTREMITY FOR THE NEXT 4-5 DAYS. ELEVATE THE RIGHT ANKLE S AND APPLY ICE OVER SWELLING EVERY 4 HOURS, 30 MINUTES FOR 48 HOURS. MOTRIN 600 MG EVERY 6 HOURS NEEDED PAIN. WEAR THE VELCRO ANKLE SPLINT FOR COMFORT. CONSULT YOUR PRIMARY CARE PROVIDER FOR REEVALUATION WITHIN 1WEEK. Prescriptions: Ibuprofen 600 mg PO Q6H PRN PRN #20 tablet PRN Reason: Pain
[2017-11-20] MEDS ORDERED: MOTRIN 600 MG ONE (11:00)
--- NOTE | 2017-11-20 11:13 | XRAY ---
Indication: Pain following injury. Comparison: None 3 views of the right ankle demonstrates mild lateral soft tissue swelling and tiny plantar heel spur. No other bony, articular, or soft tissue abnormalities.
[2017-11-20 11:41] VITALS: BP 152/102
[2017-11-20 11:49] VITALS: PULSE 78; O2SAT 98
== END 2017-11-20 11:49 | disposition home or self-care (01) ==
LOC: ED 10:06
DX: S93.401A Sprain of unspecified ligament of right ankle, initial encounter (principal); X50.0XXA Overexertion from strenuous movement or load, initial encounter; I10 Essential (primary) hypertension; Z79.899 Other long term (current) drug therapy; Z86.73 Personal history of transient ischemic attack (TIA), and cerebral infarction without residual deficits; R56.9 Unspecified convulsions
CPT/HCPCS: 73610; 99284; A9270-GY

== ENCOUNTER 2021-06-19 10:32 | Emergency (ER) | payer OTHER ==
[2021-06-19 10:43] VITALS: BP 136/99; PULSE 86; O2SAT 98
--- NOTE | 2021-06-19 10:47 | ERPHSYRPT ---
- History of Present Illness Time Seen by Provider: 06/19/21 10:44 Source: patient Exam Limitations: no limitations Patient Subjective Stated Complaint: L hand 4th digit injury Triage Nursing Assessment: pt to ED c/o L hand 4th digit injury last night. states she was bowling when she heard a pop in her finger. has had limited ROM since injury. cap refil < 3 sec and digit is warm and pink. some tenderness and swelling noted. rates 1/10 pain now, states "I just need to see if its brokebn, it worries me than I can't bend it well." Physician History: Left hand 4th digit injury c/o L hand 4th digit injury last night. states she was bowling when she heard a pop in her finger. has had limited ROM since injury. cap refil < 3 sec and digit is warm and pink. some tenderness and swelling noted. rates 1/10 pain now, state s "I just need to see if its broken, it worries me than I can't bend it well." Occurred: yesterday Method of Injury: sports injury, twisted Quality: constant Severity of Pain-Max: mild Severity of Pain-Current: mild Extremities Pain Location: 4th finger: left (middle phalynx pain, dorsum side) Modifying Factors: Improves With: cold therapy Associated Symptoms: none Allergies/Adverse Reactions: codeine Allergy (Severe, Verified 06/19/21 10:43) Hives hydrocodone Allergy (Severe, Verified 06/19/21 10:43) Swelling Home Medications: Duloxetine HCl 60 mg PO DAILY 11/20/17 [History] Ergocalciferol (Vitamin D2) [Vitamin D2] 1 cap PO WEEKLY 11/20/17 [History] Gabapentin 300 mg PO TID 11/20/17 [History] Norgestimate-Ethinyl Estradiol [[place]] 1 each PO DAILY 11/20/17 [History] Trazodone HCl 50 mg [Desyrel 50 mg] 50 mg PO HS 11/20/17 [History] carvediloL [Carvedilol] 3.125 mg PO DAILY 11/20/17 [History] Hx Tetanus, Diphtheria Vaccination/Date Given: Yes Hx Influenza Vaccination/Date Given: Yes Hx Pneumococcal Vaccination/Date Given: No Immunizations Up to Date: Yes Travel Risk - International Travel Have you traveled outside of the country in past 3 weeks: No - Coronavirus Screening Are you exhibiting any of the following symptoms?: No Close contact with a COVID-19 positive Pt in past 14-21 Days: No - Vaccine Status Have you recieved a Covid-19 vaccination: Yes Mingle Operator: Kony - Review of Systems Constitutional: No Symptoms Eyes: No Symptoms Ears, Nose, & Throat: No Symptoms Respiratory: No Symptoms Cardiac: No Symptoms Abdominal/Gastrointestinal: No Symptoms Genitourinary Symptoms: No Symptoms Musculoskeletal: Injury, Joint Swelling Skin: No Symptoms Neurological: No Symptoms - Past Medical History Pertinent Past Medical History: Yes Neurological History: Seizures, TIA ENT History: No Pertinent History Cardiac History: Hypertension Respiratory History: No Pertinent History Endocrine Medical History: No Pertinent History Musculoskeletal History: Degenerative Disk Disease GI Medical History: No Pertinent History History: No Pertinent History Psycho-Social History: No Pertinent History Female Reproductive Disorders: No Pertinent History Other Medical History: gallbladder removed, appendix removed, fatty liver, m itral valve prolapse, - Past Surgical History Past Surgical History: Yes Neuro Surgical History: No Pertinent History Cardiac: No Pertinent History Respiratory: No Pertinent History Gastrointestinal: Appendectomy, Cholecystectomy Genitourinary: No Pertinent History Musculoskeletal: No Pertinent History Female Surgical History: Hysterectomy, Section, Tubal Ligation Other Surgical History: After first , patient described that she had 27 "mini" strokes and preeclampsia. TONSILS ET ADNOIDS - Social History Smoking Status: Never smoker Exposure to second hand smoke: Yes Drug Use: none Patient Lives Alone: No Significant Family History: no pertinent family hx - Female History Hx Now: No - Nursing Vital Signs Nursing Vital Signs: Initial Vital Signs Temperature 98.5 F 06/19/21 10:38 Pulse Rate 86 06/19/21 10:38 Respiratory Rate 18 06/19/21 10:38 Blood Pressure 136/99 06/19/21 10:38 O2 Sat by Pulse Oximetry 98 06/19/21 10:38 Pain Scale Pain Intensity 1 - Physical Exam General Appearance: no apparent distress Eyes, Ears, Nose, Throat Exam: normal ENT inspection Neck Exam: normal inspection Back Exam: normal inspection Shoulder Exam: normal inspection Elbow/Forearm Exam: normal inspection Wrist Exam: normal inspection Hand Exam: soft tissue tenderness, stiffness SpO2: 98 - Course Nursing assessment & vital signs reviewed: Yes - Radiology Exams Hand X-ray Interpretation: Reviewed by me, Negative, No Fracture, No Subluxation Ordered Tests: Active Orders 24 hr Category Date Time Status FINGER(S) Stat Exams 06/19/21 10:53 Taken - Progress Progress: improved, pain not gone completely Counseled pt/family regarding: diagnosis, need for follow-up, rad results - Departure Departure Disposition: Home Clinical Impression: Sprain of finger, left Qualifiers: Encounter type: initial encounter Finger: ring finger Sprain of finger site: interphalangeal joint Qualified Code(s): S63.635A - Sprain of interphalangeal joint of left ring finger, initial encounter Condition: Stable Critical Care Time: No Referrals: SHAUN STONE [Primary Care Provider] - Follow up/PCP as directed Instructions: Finger Sprain (DC) Additional Instructions: Discharge/Care Plan ADELA GARCIA was seen on 06/19/21 in the Emergency Room. The patient was counseled regarding Diagnosis,Lab results, Imaging studies, need for follow up and when to return to the Emergency Room. Prescriptions given: Discharge Note I have spoken with the patient and/or caregivers. I have explained the patient's condition, diagnosis and treatment plan based on the information available to me at this time. I have answered the patient's and/or caregiver's questions and addressed any concerns. The patient and/or caregivers have as good understanding of the patient's diagnosis, condition and treatment plan as can be expected at this point. The vital signs have been stable. The patient's condition is stable and appropriate for discharge from the emergency department. The patient will pursue further outpatient evaluation with the primary care physician or other designated or consulting physician as outlined in the discharge instructions. The patient and/or caregivers are agreeable to this plan of care and follow-up instructions have been explained in detail. The patient and/or caregivers have received these instruction. The patient/and or caregivers are aware that any significant change in condition or worsening of symptoms should prompt an immediate return to this or the closest emergency department or call 911. ADELA GARCIA was seen on 06/19/21 n the Emergency Room. At that time you were treated for an emergent condition, during your visit Laboratory, Radiology and/or other procedures may have been ordered. It is very important that you follow-up with your Primary Care Physician SHAUN STONE within the next 24-48 hours to review your Emergency Room visit and the final results of testing that was ordered. Some test results such as Urine Cultures, Blood Cultures, and other cultures if ordered will not be finalized for 24-48 hours. If you do not have a Primary Care Provider please call the medical records department at [phone] ext [phone] to obtain a copy of your results or you may sign into our patient portal to obtain these results by visiting us @ [email or web address] and completing the following steps: 1. Click on the Patient Portal link 2. Click the Patient Self Enrollment Link to complete the enrollment form and entering your 3. Once the enrollment form is completed you will receive an email with a temporary ID and password at the email address you provided. 4. Next choose a user name and password. Your user name must be at least 4 characters long and your password must be at least 4 characters long. 5. Choose a security question from the list and provide your answer to the question. If you already have signed into the Health Portal you may access your Health Care Information 14/11 by the following steps: 1. Login to our website @ [email or web address] 2. Enter your original user name and password. FAQS The [facility] Health Portal is an online tool that contains your Lab Results, Radiology Reports, Visit History, Discharge Instructions and Health Summary Lab and Radiology Results will not be available for 72 hours on the portal. The Portal is a secure site, passwords are encryted and URLs are re-written so they cannot be copied and pasted. You and authorized family members are the only ones who can access your Portal. Also there is a timeout feature that protects your information if you leave the Portal page open. If you have technical difficulty please use the Contact Us link on the page this will allow you to submit any questions you have regarding the Portal or you may contact the Medical Record Department at [phone].
--- NOTE | 2021-06-19 18:45 | XRAY ---
Indication: 4th finger pain following bowling injury. Comparison: None 3 view left 4th finger obtained. No bony, articular, or soft tissue abnormalities.
== END 2021-06-19 11:27 | disposition home or self-care (01) ==
LOC: ED 10:32
DX: S63.635A Sprain of interphalangeal joint of left ring finger, initial encounter (principal); X50.1XXA Overexertion from prolonged static or awkward postures, initial encounter; Y93.54 Activity, bowling; Y92.39 Other specified sports and athletic area as the place of occurrence of the external cause; I10 Essential (primary) hypertension; Z86.73 Personal history of transient ischemic attack (TIA), and cerebral infarction without residual deficits; Z79.899 Other long term (current) drug therapy
CPT/HCPCS: 73140; 99283

== ENCOUNTER 2023-10-31 07:31 | Emergency (ER) | payer OTHER ==
[2023-10-31 07:36] VITALS: RESP 18; TEMP 97.8; O2SAT 98
[2023-10-31] MEDS ORDERED: TORAdol 30 mg Injection ONE (07:57)
[2023-10-31] MEDS: TORAdol 30 mg Injection IM ONE (08:00)
--- NOTE | 2023-10-31 08:05 | ERPHSYRPT ---
- History of Present Illness Time Seen by Provider: 10/31/23 07:40 Source: patient Exam Limitations: no limitations Patient Subjective Stated Complaint: Pt states "Since yesterday, my throat has been on fire, I am congested, nauseated and I have been coughing. My coworker told me the other day she had covid." Triage Nursing Assessment: PT presented alert and oriented X 3, skin pwd. Pt ambulates with an upright steady gait, able to speak in clear full sentences. Pt voice is raspy, pt sinus congestion and non productive cough. Physician History: Patient is a 38-year-old female presents to our ED for evaluation of a 1 day history of a sore throat. Patient states she has been experiencing cough congestion. Patient has been experiencing some nausea as well. However no active nausea at this time. Cough is dry nonproductive. Patient reports COVID exposure. Patient symptoms are constant. No associated fever no diarrhea no rash. No chest pain or shortness of breath. Symptoms are moderate in intensity. No specific worsening or improving factors. Patient otherwise feels well. She voices no other complaints or concerns at this time. Portions of this note were created with voice recognition technology. There may be grammatical, spelling, punctuation or sound alike errors Timing/Duration: yesterday Severity: moderate Modifying Factors: Improves With: nothing Associated Symptoms: nausea, cough, other (Congestion) Allergies/Adverse Reactions: codeine Allergy (Severe, Verified 06/19/21 10:43) Hives hydrocodone Allergy (Severe, Verified 06/19/21 10:43) Swelling Home Medications: Duloxetine HCl 60 mg PO DAILY 11/20/17 [History] Ergocalciferol (Vitamin D2) [Vitamin D2] 1 cap PO WEEKLY 11/20/17 [History] Norgestimate-Ethinyl Estradiol [[place]] 1 each PO DAILY 11/20/17 [History] Trazodone HCl 50 mg [Desyrel 50 mg] 50 mg PO HS 11/20/17 [History] carvediloL [Carvedilol] 3.125 mg PO DAILY 11/20/17 [History] Dulaglutide [Trulicity] 4.5 mg SQ WEEKLY 10/31/23 [History] Hx Tetanus, Diphtheria Vaccination/Date Given: Yes Hx Influenza Vaccination/Date Given: Yes Hx Pneumococcal Vaccination/Date Given: No Immunizations Up to Date: No Travel Risk - International Travel Have you traveled outside of the country in past 3 weeks: No - Emerging Infectious Disease Are you exhibiting symptoms associated with any current EIDs: Yes Symptoms: Cough: New Onset, Other (Please Comment) Comment: Sorethroat, congestion, nausea - Review of Systems Constitutional: No Symptoms, No Fever, No Chills Eyes: No Symptoms Ears, Nose, & Throat: No Symptoms Respiratory: No Symptoms, No Cough, No Dyspnea Cardiac: No Symptoms, No Chest Pain, No Edema, No Syncope Abdominal/Gastrointestinal: No Symptoms, No Abdominal Pain, No Nausea, No Vomiting, No Diarrhea Genitourinary Symptoms: No Symptoms, No Dysuria Musculoskeletal: No Symptoms, No Back Pain, No Neck Pain Skin: No Symptoms, No Rash Neurological: No Symptoms, No Dizziness, No Focal Weakness, No Sensory Changes Psychological: No Symptoms Endocrine: No Symptoms Hematologic/Lymphatic: No Symptoms Immunological/Allergic: No Symptoms All Other Systems: Reviewed and Negative - Past Medical History Pertinent Past Medical History: Yes Neurological History: Seizures, TIA ENT History: No Pertinent History Cardiac History: Hypertension Respiratory History: No Pertinent History Endocrine Medical History: No Pertinent History Musculoskeletal History: Degenerative Disk Disease GI Medical History: No Pertinent History History: No Pertinent History Psycho-Social History: No Pertinent History Female Reproductive Disorders: No Pertinent History Other Medical History: gallbladder removed, appendix removed, fatty liver, mitral valve prolapse, - Past Surgical History Past Surgical History: Yes Neuro Surgical History: No Pertinent History Cardiac: No Pertinent History Respiratory: No Pertinent History Gastrointestinal: Appendectomy, Cholecystectomy Genitourinary: No Pertinent History Musculoskeletal: No Pertinent History Female Surgical History: Hysterectomy, Section, Tubal Ligation Other Surgical History: After first , patient described that she had 27 "mini" strokes and preeclampsia. TONSILS ET ADNOIDS Significant Family History: no pertinent family hx - Female History Hx Last Menstrual Period: hysterectomy Hx Now: No - Social History Smoking Status: Never smoker Exposure to second hand smoke: Yes Drug Use: none Patient Lives Alone: No - Social Determinants of Health Will the patient participate in the screening: Declined to provide - Nursing Vital Signs Nursing Vital Signs: Initial Vital Signs Blood Pressure 155/103 10/31/23 07:31 O2 Sat by Pulse Oximetry 97 10/31/23 07:31 Pain Scale Pain Intensity 7 - Physical Exam General Appearance: no apparent distress, alert Eye Exam: PERRL/EOMI, eyes nml inspection Ears, Nose, Throat Exam: normal ENT inspection, pharynx normal, moist mucous membranes, other (6 monthsNumber their body is much fish birds or bird watch of is the really think this we did was in general to compare exam using the very there is we will again we did Gina De Los Santos and then main reason is called is because of the pathology story of COPD and is Gina was a human) Neck Exam: normal inspection, non-tender, supple, full range of motion Respiratory Exam: normal breath sounds, lungs clear, airway intact, No res piratory distress Cardiovascular Exam: regular rate/rhythm, normal heart sounds, normal peripheral pulses Gastrointestinal/Abdomen Exam: soft, normal bowel sounds, No tenderness, No mass Back Exam: normal inspection, normal range of motion, No CVA tenderness, No vertebral tenderness Extremity Exam: normal inspection, normal range of motion, pelvis stable Neurologic Exam: alert, oriented x 3, cooperative, normal mood/affect, nml cerebellar function, nml station & gait, sensation nml, No motor deficits Skin Exam: normal color, warm, dry, No rash Lymphatic Exam: No adenopathy SpO2 Interpretation: normal SpO2: 98 O2 Delivery: Room Air - Course Nursing assessment & vital signs reviewed: Yes - Radiology Exams Chest X-ray Interpretation: Teleradiologist Report (No acute findings) Ordered Tests: Active Orders 24 hr Category Date Time Status CHEST 1 VIEW (PORTABLE) Stat Exams 10/31/23 07:49 Completed Medication Summary Discontinued Medications Generic Name Dose Route Start Last Admin Trade Name Althea PRN Reason Stop Dose Admin Ketorolac Tromethamine 30 mg 10/31/23 07:49 10/31/23 08:00 Ketorolac Tromethamine 30 Mg/Ml Inj IM 10/31/23 07:50 30 mg STAT ONE Administration Ketorolac Tromethamine Confirm 10/31/23 07:57 Ketorolac Tromethamine 30 Mg/Ml Inj Administered 10/31/23 07:58 Dose 30 mg .ROUTE .STK-MED ONE Prednisone 60 mg 10/31/23 09:41 10/31/23 09:44 Prednisone 20 Mg Tablet PO 10/31/23 09:42 60 mg STAT ONE Administration Lab/Rad Data: Laboratory Results 10/31/23 10/31/23 Range/Units 07:56 07:56 Influenza Type A Ag NEGATIVE (NEGATIVE) Influenza Type B Ag NEGATIVE (NEGATIVE) RSV (PCR) NEGATIVE (NEGATIVE) SARS-CoV-2 (PCR) NEGATIVE (NEGATIVE) Group A Strep Antibody NOT DETECTED (NEGATIVE) - Progress Progress: improved Progress Note: 38-year-old female presents emergency department for evaluation of sore throat cough and congestion. Physical exam reveals erythematous oropharynx. Lungs are clear. Chest x-ray negative for acute findings. Rapid strep negative for strep throat. RSV COVID influenza negative as well. We will treat patient symptomatically. Patient received a dose of prednisone in our ED. A prescription for prednisone forwarded to patient's pharmacy. Patient received Toradol in our ED. Pain improved. Prescription for Toradol forwarded to patient's pharmacy as well. Will discharge home. Patient to follow-up with her primary care doctor within 48 hours for reevaluation. Portions of this note were created with voice recognition technology. There may be grammatical, spelling, punctuation or sound alike errors Complexity problem addressed is moderate acute complicated. No critical care time. Complex of data reviewed and analyzed is moderate. Test ordered test reviewed results analyzed and correlated clinically with history and physical exam. Risk complication and or risk of morbidity/mortality patient management is moderate. A prescription for prednisone and Toradol forwarded to patient's pharmacy. Vital stable. Time spent to discharge patient approximately 20 minutes. Plan of care established for shared decision making. No social determinants of health present impede follow-up. Portions of this note were created with voice recognition technology. There may be grammatical, spelling, punctuation or sound alike errors 10/31/23 09:45 Counseled pt/family regarding: lab results, diagnosis, need for follow-up, rad results - Departure Departure Disposition: Home Clinical Impression: Cough, URI (upper respiratory infection), Sore throat, Viral pharyngitis Condition: Stable Critical Care Time: No Referrals: TYRELL TEJADA MD [Primary Care Provider] - Follow up/PCP as directed Additional Instructions: Discharge/Care Plan ADELA GARCIA was seen on 10/31/23 in the Emergency Room. The patient was counseled regarding Diagnosis,Lab results, Imaging studies, need for follow up and when to return to the Emergency Room. Prescriptions given: Discharge Note I have spoken with the patient and/or caregivers. I have explained the patient's condition, diagnosis and treatment plan based on the information available to me at this time. I have answered the patient's and/or caregiver's questions and addressed any concerns. The patient and/or caregivers have as good understanding of the patient's diagnosis, condition and treatment plan as can be expected at this point. The vital signs have been stable. The patient's condition is stable and appropriate for discharge from the emergency department. The patient will pursue further outpatient evaluation with the primary care physician or other designated or consulting physician as outlined in the discharge instructions. The patient and/or caregivers are agreeable to this plan of care and follow-up instructions have been explained in detail. The patient and/or caregivers have received these instruction. The patient/and or caregivers are aware that any significant change in condition or worsening of symptoms should prompt an immediate return to this or the closest emergency department or call 911. Forms: Work/School Release Form Prescriptions: Prednisone 10 mg [Deltasone 10 mg] 40 mg PO DAILY 3 Days #12 tablet Ketorolac Trometh 10 mg Tab [TORAdol 10 MG TABLET] 10 mg PO TID 5 Days #15 tablet
[2023-10-31 08:35] LABS: INFLUENZA A NEGATIVE (NEGATIVE); INFLUENZA B NEGATIVE (NEGATIVE); RESPIRATORY SYNCTIAL VIRUS NEGATIVE (NEGATIVE); SARS-CoV-2 Xpert Express NEGATIVE (NEGATIVE)
--- NOTE | 2023-10-31 09:16 | XRAY ---
Indication: Cough and short of breath. Comparison: November 02, 2016 Portable chest again demonstrates normal heart, lungs, and bony thorax.
[2023-10-31] MEDS ORDERED: DELTASONE 20 MG ONE (09:44)
[2023-10-31] MEDS: DELTASONE 20 MG PO ONE (09:44)
[2023-10-31 09:47] VITALS: BP 118/84; PULSE 88
== END 2023-10-31 09:57 | disposition home or self-care (01) ==
LOC: ED 07:31
DX: J06.9 Acute upper respiratory infection, unspecified (principal); R05.9 Cough, unspecified; J02.9 Acute pharyngitis, unspecified; I10 Essential (primary) hypertension; Z79.52 Long term (current) use of systemic steroids; Z79.85 Long-term (current) use of injectable non-insulin antidiabetic drugs; Z79.899 Other long term (current) drug therapy
CPT/HCPCS: 0241U; 71045; 87651; 96372; 99284; J1885; A9270-GY

== ENCOUNTER 2024-04-12 07:19 | Emergency (ER) | payer OTHER ==
--- NOTE | 2024-04-12 07:28 | ERPHSYRPT ---
- History of Present Illness Time Seen by Provider: 04/12/24 07:26 Source: patient Exam Limitations: no limitations Physician History: This is a 39-year-old white female patient of Dr. Tejada who presents to the emergency department by private vehicle secondary to left knee pain both anteriorly and posteriorly in the popliteal fossa. The pain is been present for 3 days. Patient was having neck pain and received a steroid injection on the right hip (opposite side of her current pain) to help treat neck pain. Later that same day she has the sharp constant achiness anteriorly and in the posterior popliteal fossa on the left side. Patient has no history of DVTs. Patient has history of diabetes, hyperlipidemia, TIAs and seizure disorder. Patient states that although she cannot take codeine or hydrocodone, she has tolerated morphine injections in the past without any adverse effects. Method of Injury: other (No known injury) Occurred: days ago (3) Quality: constant, aching, sharpness Severity of Pain-Max: moderate Severity of Pain-Current: moderate Lower Extremities Pain: knee: left (Anteriorly and in the popliteal fossa) Modifying Factors: Improves With: nothing Associated Symptoms: none Allergies/Adverse Reactions: codeine Allergy (Severe, Verified 04/12/24 07:28) Hives hydrocodone Allergy (Severe, Verified 04/12/24 07:28) Swelling Home Medications: Atorvastatin Calcium [Lipitor 20MG Tablet] 20 mg PO HS 04/12/24 [History] Semaglutide [Ozempic] 2 mg SQ WEEKLY 04/12/24 [History] Hx Tetanus, Diphtheria Vaccination/Date Given: Yes Hx Influenza Vaccination/Date Given: Yes Hx Pneumococcal Vaccination/Date Given: No Travel Risk - International Travel Have you traveled outside of the country in past 3 weeks: No - Emerging Infectious Disease Are you exhibiting symptoms associated with any current EIDs: Yes Symptoms: Cough: New Onset, Other (Please Comment) Comment: Sorethroat, congestion, nausea - Review of Systems Constitutional: No Symptoms Eyes: No Symptoms Ears, Nose, & Throat: No Symptoms Respiratory: No Symptoms Cardiac: No Symptoms Abdominal/Gastrointestinal: No Symptoms Genitourinary Symptoms: No Symptoms Musculoskeletal: Joint Pain (Left knee) Skin: No Symptoms Neurological: No Symptoms Psychological: No Symptoms Endocrine: No Symptoms Hematologic/Lymphatic: No Symptoms Immunological/Allergic: No Symptoms All Other Systems: Reviewed and Negative - Past Medical History Pertinent Past Medical History: Yes Neurological History: Seizures, TIA ENT History: No Pertinent History Cardiac History: Hypertension Respiratory History: No Pertinent History Endocrine Medical History: No Pertinent History Musculoskeletal History: Degenerative Disk Disease GI Medical History: No Pertinent History History: No Pertinent History Psycho-Social History: No Pertinent History Female Reproductive Disorders: No Pertinent History Other Medical History: gallbladder removed, appendix removed, fatty liver, mitral valve prolapse, - Past Surgical History Past Surgical History: Yes Neuro Surgical History: No Pertinent History Cardiac: No Pertinent History Respiratory: No Pertinent History Gastrointestinal: Appendectomy, Cholecystectomy Genitourinary: No Pertinent History Musculoskeletal: No Pertinent History Female Surgical History: Hysterectomy, Section, Tubal Ligation Other Surgical History: After first , patient described that she had 27 "mini" strokes and preeclampsia. TONSILS ET ADNOIDS Significant Family History: no pertinent family hx - Female History Hx Last Menstrual Period: hysterectomy - Social History Smoking Status: Never smoker Exposure to second hand smoke: Yes Drug Use: none Patient Lives Alone: No - Social Determinants of Health Will the patient participate in the screening: Declined to provide - Nursing Vital Signs Nursing Vital Signs: Initial Vital Signs Temperature 97.6 F 04/12/24 07:20 Pulse Rate 71 04/12/24 07:20 Respiratory Rate 17 04/12/24 07:20 Blood Pressure 150/90 04/12/24 07:20 O2 Sat by Pulse Oximetry 100 04/12/24 07:20 Pain Scale Pain Intensity 8 - Physical Exam General Appearance: no apparent distress, alert, anxiety Eyes, Ears, Nose, Throat Exam: normal ENT inspection, moist mucous membranes Neck Exam: normal inspection, non-tender, supple, full range of motion Cardiovascular/Respiratory Exam: chest non-tender, no respiratory distress Gastrointestinal/Abdominal Exam: non-tender Back Exam: normal inspection, normal range of motion, No CVA tenderness, No vertebral tenderness Hips Exam: bilateral: non-tender, normal inspection, normal range of motion, no evidence of injury Legs Exam: bilateral leg: non-tender, normal inspection, normal range of motion, no evidence of injury Knees Exam: right knee: non-tender, left knee: bone tenderness, soft tissue tenderness, bilateral knee: normal inspection, normal range of motion, no evidence of injury Ankle Exam: bilateral ankle: non-tender, normal inspection, normal range of motion, no evidence of injury Foot Exam: bilateral foot: non-tender, normal inspection, normal range of motion, no evidence of injury Neuro/Tendon Exam: normal sensation, normal motor functions, normal tendon functions, no evidence tendon injury Mental Status Exam: alert, oriented x 3, cooperative Skin Exam: normal color, warm, dry SpO2 Interpretation: normal O2 Delivery: Room Air - Course Nursing assessment & vital signs reviewed: Yes Ordered Tests: Active Orders 24 hr Category Date Time Status KNEE (3 VIEWS) Stat Exams 04/12/24 07:40 Taken D-DIMER QUANTITATIVE Stat Lab 04/12/24 07:55 Completed Medication Summary Discontinued Medications Generic Name Dose Route Start Last Admin Trade Name Althea PRN Reason Stop Dose Admin Morphine Sulfate 4 mg 04/12/24 08:05 04/12/24 08:15 Morphine Sulfate 4 Mg/Ml Injection IM 04/12/24 08:06 4 mg STAT ONE Administration Morphine Sulfate Confirm 04/12/24 08:12 Morphine Sulfate 4 Mg/Ml Injection Administered 04/12/24 08:13 Dose 4 mg .ROUTE .STK-MED ONE Ondansetron HCl 4 mg 04/12/24 08:05 04/12/24 08:14 Zofran 4 Mg/Udtablet Orally Disintegrating PO 04/12/24 08:06 4 mg STAT ONE Administration Ondansetron HCl Confirm 04/12/24 08:12 Zofran 4 Mg/Udtablet Orally Disintegrating Administered 04/12/24 08:13 Dose 4 mg .ROUTE .STK-MED ONE Lab/Rad Data: Laboratory Results 04/12/24 Range/Units 07:55 D-Dimer 0.21 (0.0-0.50) mg/L - Progress Progress: improved, pain not gone completely, re-examined Progress Note: 04/12/24 08:10 My medical decision making and the assignment of low complexity to this patient's medical issue today is based on review of the patient's past medical history, review of the patient's medication list, reviewed patient drug allergy list, history present illness and physical findings on examination. The workup in this patient includes checking a D-dimer and if positive obtaining an venous Doppler ultrasound of the left lower extremity to evaluate for DVT. In addition we will order an x-ray of the left knee. Differential diagnosis includes but is not limited to muscle skeletal pain, fracture/dislocation, DVT, degenerative arthritis 04/12/24 08:29 I interpreted the preliminary report of the x-ray of the left knee. My impression is there are are no acute fractures or dislocations. Counseled pt/family regarding: diagnosis, need for follow-up, rad results Medical Desision Making - Diagnostic Testing Diagnostic test were ordered, analyzed, and reviewed by me: Yes Radiological Interpretation: Interpreted by me - Risk of complications Low Risk: Low risk of morbidity from additional dx testing or treatment - Departure Departure Disposition: Home Clinical Impression: Left knee pain Condition: Stable Critical Care Time: No Referrals: TYRELL TEJADA MD [Primary Care Provider] - Follow up/PCP as directed Additional Instructions: Ice pack to tender area 3-4 times a day for the next 2 to 3 days. Use Tylenol and ibuprofen for pain control if there are no contraindications. Call your primary care provider today, 04/12/2024, to make arrangements for follow-up appointment for further evaluation and management as well as outpatient control of your pain.
[2024-04-12 07:37] VITALS: RESP 18; TEMP 97.6
[2024-04-12] MEDS ORDERED: MORPHINE SULFATE 4 MG INJ ONE (08:12)
[2024-04-12] MEDS ORDERED: ZOFRAN ODT 4 MG ONE (08:12)
[2024-04-12] MEDS: ZOFRAN ODT 4 MG PO ONE (08:14)
[2024-04-12] MEDS: MORPHINE SULFATE 4 MG INJ IM ONE (08:15)
[2024-04-12 08:48] VITALS: BP 144/95; PULSE 80; O2SAT 98
--- NOTE | 2024-04-12 09:26 | XRAY ---
Indication: Pain. No known injury. Comparison: None 3 view left knee demonstrates minimal medial joint space narrowing, tiny nonspecific effusion, and incidental tiny fabella. No other bony, articular, or soft tissue abnormalities.
== END 2024-04-12 08:49 | disposition home or self-care (01) ==
LOC: ED 07:19
DX: M25.562 Pain in left knee (principal)
CPT/HCPCS: 36415; 73562; 85379; 96372; 99283; 99284; J2270; Q0162